=== PATIENT | female | born 1935 | race Two or more races ===

== ENCOUNTER → 2021-04-08 | Outpatient (CLI) | payer MEDICARE ==
[~2021-04-08] VITALS: Ht 167.6 cm; Wt 56.2 kg
[~2021-04-08] MED LIST: DOBUTamine 1000MCG/ML 250 ML IV ONE
== END | disposition home or self-care (01) ==
LOC: Rad HDHVI 09:44
PROVIDERS: ATTEND Internal Medicine Cardiovascular Disease
DX: I11.0 Hypertensive heart disease with heart failure (principal); I50.43 Acute on chronic combined systolic (congestive) and diastolic (congestive) heart failure; I48.91 Unspecified atrial fibrillation; J44.9 Chronic obstructive pulmonary disease, unspecified
CPT/HCPCS: 78452; 93017; 96374; A9500; J1250

== ENCOUNTER → 2021-05-27 | Outpatient (CLI) | payer MEDICARE ==
[~2021-05-27] MED LIST changes: +AMLO-489 PO; +ASPI-543 PO; -DOBUTamine 1000MCG/ML 250 ML IV ONE; +FURO20TA3 PO; +METO1TAB9 PO; +PANT1INJ3 IV; +POTA10TA32 PO
[2021-05-27 08:21] VITALS: BP 154/70
[2021-05-27 08:41] VITALS: BP 147/74
[2021-05-27 09:09] LABS: Basophils # (auto) 0 10 ^3/uL (0-0.2); Basophils % (auto) 0.9 % (0.0-2.0); Eosinophils # (auto) 0.2 10 ^3/uL (0-0.8); Hematocrit 33.9 % (36.0-46.0); Hemoglobin 11.2 g/dL (12.2-16.2); Lymphocytes % (auto) 21.4 % (10.0-50.0); Mean Corpuscular Hemoglobin 28.1 pg (28.0-32.0); Mean Corpuscular Volume 85.2 fL (80.0-100.0); Monocytes # (auto) 0.8 10 ^3/uL (0-1.3); Monocytes % (auto) 16.7 % (0.0-12.0); Neutrophils # (auto) 2.6 10 ^3/uL (1.6-8.6); Nucleated Red Blood Cells % 0.1 %; Red Blood Cells 3.98 10^6/uL (4.0-5.20); Red Cell Distribution Width 13.1 % (11.8-14.3); White Blood Cell 4.6 10^3/uL (4.4-10.8)
[2021-05-27 09:15] LABS: BUN/Creatinine Ratio 14.7; Calcium 9.3 mg/dL (8.5-10.1); Potassium 3.6 mmol/L (3.5-5.1)
[2021-05-27 10:13] LABS: INR 1.07 (0.9-1.15); Partial Thromboplastin Time 25.8 sec (23.6-33.0)
== END | disposition home or self-care (01) ==
LOC: LAB 08:02
PROVIDERS: ATTEND Internal Medicine Cardiovascular Disease
DX: Z01.812 Encounter for preprocedural laboratory examination (principal); R94.31 Abnormal electrocardiogram [ECG] [EKG]; I48.91 Unspecified atrial fibrillation; I11.0 Hypertensive heart disease with heart failure; I50.9 Heart failure, unspecified; I49.5 Sick sinus syndrome
CPT/HCPCS: 36415; 80048; 85025; 85610; 85730; 93005; G0463

== ENCOUNTER 2021-05-31 10:49 | Inpatient (IN) | payer MEDICARE ==
[~2021-05-31] VITALS: Ht 167.6 cm; Wt 61.7 kg
[2021-05-31] VITALS (10 sets, daily range): BP systolic 113–153; BP diastolic 38–92
[2021-05-31] MEDS ORDERED: HEPARIN IN NS 1000Units/500mL 1,500 ML ONE (12:11)
[2021-05-31] MEDS ORDERED: IODIXANOL 320MG/ML 100ML BTL IV ONE (12:11)
[2021-05-31] MEDS ORDERED: LIDOCAINE 2%HCL (LOCAL ANESTH.) INJ 10ml MDV ONE ×2 (12:11→12:41)
[2021-05-31] MEDS ORDERED: fentaNYL CITRATE 100 MCG/2 ML VL ONE (12:44)
[2021-05-31] MEDS ORDERED: SODIUM CHL 0.9% 50 ML ONE (12:44)
[2021-05-31] MEDS ORDERED: ANGIOMAX 250 MG VIAL IV ONE (12:44)
[2021-05-31] MEDS ORDERED: MIDAZOLAM HCL 2MG/2ML 2ml VIAL (1mg/ml) ONE (12:44)
[2021-05-31] MEDS ORDERED: IOHEXOL 350 MG/ML 100ML IJ ONE (13:49)
[2021-05-31] MEDS ORDERED: ASPirin 325 MG TAB ONE (14:17)
[2021-05-31] MEDS ORDERED: TICAGRELOR 90 MG TAB ONE (14:17)
[2021-05-31] MEDS ORDERED: CLOPIDOGREL BISULFATE 75 MG TAB ONE (14:27)
[2021-05-31] MEDS ORDERED: ASPirin 81 mg TAB ONE (14:28)
[2021-05-31] MEDS ORDERED: NITROGLYCERIN 0.4 MG SL TAB SL PRN (14:45)
[2021-05-31] MEDS: POTASSIUM CHL 10 Meq TABLET PO SCH (14:45)
[2021-05-31] MEDS ORDERED: MORPHINE SULFATE INJECTION 2 MG/ML SYRG IV PRN (14:45)
[2021-05-31] MEDS: traMADol HCL 50 MG TAB PO PRN (17:41)
[2021-06-01] MEDS: traMADol HCL 50 MG TAB PO PRN (01:09)
[2021-06-01] MEDS: SODIUM CHLOR 0.9% PF (SALINE LOCK) 10ML VIAL/SYR IV SCH ×3 (01:14→14:16)
[2021-06-01 05:30] VITALS: BP 106/49
[2021-06-01 09:00] VITALS: BP 111/56
[2021-06-01] MEDS ORDERED: CLOPIDOGREL BISULFATE 75 MG TAB PO SCH (10:00)
[2021-06-01] MEDS ORDERED: PANTOPRAZOLE 40 MG/10 ML VIAL INJ IV SCH (10:00)
[2021-06-01] MEDS ORDERED: ASPirin-EC 81 mg tab PO SCH (10:00)
[2021-06-01] MEDS ORDERED: FUROSEMIDE 20 MG TAB PO SCH (10:00)
[2021-06-01] MEDS ORDERED: amLODIPine BESYLATE 5 MG TAB PO SCH (10:00)
[2021-06-01] MEDS ORDERED: METOPROLOL SUCCINATE XL 50 MG TAB PO SCH (10:00)
[2021-06-01] MEDS: POTASSIUM CHL 10 Meq TABLET PO SCH (10:28)
[2021-06-01 16:32] VITALS: BP 134/65
== END 2021-06-01 17:40 | disposition home or self-care (01) | DRG 247 ==
LOC: CATH 10:49 → TELE 14:32 → TELE-CENTR 16:16
PROVIDERS: ADMIT Internal Medicine Cardiovascular Disease; ATTEND Internal Medicine Cardiovascular Disease
PROC: 027034Z Dilation of Coronary Artery, One Artery with Drug-eluting Intraluminal Device, Percutaneous Approach (ICD-10-PCS; principal; 2021-05-31)
PROC: 4A033BC Measurement of Arterial Pressure, Coronary, Percutaneous Approach (ICD-10-PCS; 2021-05-31)
PROC: 4A023N7 Measurement of Cardiac Sampling and Pressure, Left Heart, Percutaneous Approach (ICD-10-PCS; 2021-05-31)
PROC: B2111ZZ Fluoroscopy of Multiple Coronary Arteries using Low Osmolar Contrast (ICD-10-PCS; 2021-05-31)
PROC: B2151ZZ Fluoroscopy of Left Heart using Low Osmolar Contrast (ICD-10-PCS; 2021-05-31)
DX: I25.10 Atherosclerotic heart disease of native coronary artery without angina pectoris (principal); I50.32 Chronic diastolic (congestive) heart failure; E78.5 Hyperlipidemia, unspecified; I11.0 Hypertensive heart disease with heart failure; Z20.822 Contact with and (suspected) exposure to COVID-19; J43.9 Emphysema, unspecified; Z72.0 Tobacco use
CPT/HCPCS: 92928; 93458; 93571; 93572; 99152; 99153; C1874; C9113; G0378; J2001; J2250; Q9967

== ENCOUNTER 2021-08-09 07:16 | Inpatient (IN) | payer MEDICARE ==
[~2021-08-09] VITALS: Ht 167.6 cm; Wt 60.7 kg
[2021-08-09] MEDS ORDERED: methylPREDNISolone SOD SUCC 125 MG/2 ML VL IV ONE (07:30)
[2021-08-09 08:49] LABS: Hematocrit 30.7 % (36.0-46.0); Hemoglobin 9.4 g/dL (12.2-16.2); Mean Corpuscular Hemoglobin 24.7 pg (28.0-32.0); Mean Corpuscular Hgb Conc. 30.6 g/dL (32.0-36.0); Mean Corpuscular Volume 80.6 fL (80.0-100.0); Red Blood Cells 3.81 10^6/uL (4.0-5.20); Red Cell Distribution Width 15.5 % (11.8-14.3); White Blood Cell 9.1 10^3/uL (4.4-10.8)
[2021-08-09 09:02] LABS: Basophils % (manual) 0 (0.0-2.0); Blast Cells 0; Eosinophils % (manual) 0 (0-7); Myelocytes % 0; Promyelocytes % 0; Reactive Lymphocytes 0
[2021-08-09 09:07] LABS: Albumin 3.1 g/dL (3.4-5.0); Calcium 8.6 mg/dL (8.5-10.1); Potassium 4.3 mmol/L (3.5-5.1)
[2021-08-09 09:19] LABS: BUN/Creatinine Ratio 28.6; Bilirubin, Total 0.7 mg/dL (0.2-1.0); CRP High Sensitivity 10.1 mg/dL (< 0.3); Magnesium 2.6 mg/dL (1.6-2.6); Total Protein 6.9 g/dL (6.4-8.2)
[2021-08-09 09:26] LABS: Band Neutrophils % (manual) 2; Lymphocytes % (manual) 7 (10.0-50.0); Metamyelocytes % 1; Monocytes % (manual) 6 (0-12)
[2021-08-09] MEDS ORDERED: ONDANSETRON HCL 4 MG/2 ML VIAL IV PRN (12:00)
[2021-08-09] MEDS ORDERED: ACETAMINOPHEN 325 MG TAB PO PRN (12:00)
[2021-08-09] MEDS ORDERED: DOCUSATE SOD 100 MG CAP PO PRN (12:00)
[2021-08-09] MEDS ORDERED: FUROSEMIDE 100 MG/10ML VIAL IV ONE (12:15)
[2021-08-09 23:45] VITALS: BP 119/60
[2021-08-10] VITALS (7 sets, daily range): BP systolic 110–147; BP diastolic 52–81
[2021-08-10 06:59] LABS: Basophils # (auto) 0 10 ^3/uL (0-0.2); Eosinophils # (auto) 0 10 ^3/uL (0-0.8); Hemoglobin 9.4 g/dL (12.2-16.2); Mean Corpuscular Volume 80.2 fL (80.0-100.0); Monocytes # (auto) 0.4 10 ^3/uL (0-1.3); Neutrophils # (auto) 4.1 10 ^3/uL (1.6-8.6); Nucleated Red Blood Cells % 0.1 %; White Blood Cell 4.9 10^3/uL (4.4-10.8)
[2021-08-10 07:01] LABS: Basophils % (auto) 0.1 % (0.0-2.0); Hematocrit 29.9 % (36.0-46.0); Lymphocytes # (auto) 0.5 10 ^3/uL (0.4-5.4); Lymphocytes % (auto) 9.6 % (10.0-50.0); Mean Corpuscular Hemoglobin 25.2 pg (28.0-32.0); Mean Corpuscular Hgb Conc. 31.4 g/dL (32.0-36.0); Monocytes % (auto) 7.7 % (0.0-12.0); Neutrophils % (auto) 82.6 % (37.0-80.0); Red Blood Cells 3.73 10^6/uL (4.0-5.20); Red Cell Distribution Width 15.6 % (11.8-14.3)
[2021-08-10 07:14] LABS: Calcium 8.5 mg/dL (8.5-10.1); Potassium 4.3 mmol/L (3.5-5.1)
[2021-08-10 07:17] LABS: Albumin 2.8 g/dL (3.4-5.0); BUN/Creatinine Ratio 39.1
[2021-08-10 07:26] LABS: Bilirubin, Total 0.5 mg/dL (0.2-1.0)
[2021-08-10] MEDS: ASPirin 81 mg TAB PO SCH (09:58)
[2021-08-10] MEDS: METOPROLOL SUCCINATE XL 50 MG TAB PO SCH (09:59)
[2021-08-10] MEDS: ENOXAPARIN SOD 40 MG/0.4 ML SYRINGE SC SCH (10:00)
[2021-08-10] MEDS ORDERED: AZITHROMYCIN 500MG/ 250ML 250 ML IV SCH (10:00)
[2021-08-10] MEDS ORDERED: amLODIPine BESYLATE 5 MG TAB PO SCH (10:00)
[2021-08-10] MEDS ORDERED: levoFLOXacin 750MG 150 ML IV SCH (10:00)
[2021-08-10] MEDS ORDERED: CLOPIDOGREL BISULFATE 75 MG TAB PO ONE (11:15)
[2021-08-10] MEDS ORDERED: POTASSIUM CHL 10 Meq TABLET PO ONE (11:15)
[2021-08-10] MEDS ORDERED: FUROSEMIDE 40 MG/4 ML VIAL IV ONE (11:15)
[2021-08-10] MEDS ORDERED: ALBUTEROL SULF 2.5 MG/0.5ML(0.5%) NEB SOLN NEB ONE (12:15)
[2021-08-10] MEDS ORDERED: ALBUTEROL SULF 2.5 MG/0.5ML(0.5%) NEB SOLN NEB PRN (12:15)
[2021-08-10] MEDS ORDERED: CLOP75TA70 PO (14:49)
[2021-08-10 15:01] LABS: Urine Bacteria NONE SEEN /hpf (None Seen); Urine Blood Negative /uL (Negative); Urine Hyaline Cast FEW /lpf (0 - 2); Urine Specific Gravity 1.015 (1.001-1.035); Urine WBC 2 /hpf (0 - 5)
[2021-08-10] MEDS: IPRATROPIUM BROM 0.5 MG/2.5ML INH SOL NEB SCH (19:19)
[2021-08-10] MEDS: ALBUTEROL SULF 2.5 MG/0.5ML(0.5%) NEB SOLN NEB SCH (19:20)
[2021-08-10] MEDS: ATORVASTATIN 20 MG TAB PO SCH (20:50)
[2021-08-11 05:00] VITALS: BP 142/69
[2021-08-11 06:55] LABS: Basophils # (auto) 0 10 ^3/uL (0-0.2); Basophils % (auto) 0.1 % (0.0-2.0); Eosinophils # (auto) 0.1 10 ^3/uL (0-0.8); Eosinophils % (auto) 0.7 % (0.0-7.0); Hematocrit 30.7 % (36.0-46.0); Hemoglobin 9.9 g/dL (12.2-16.2); Lymphocytes # (auto) 0.8 10 ^3/uL (0.4-5.4); Lymphocytes % (auto) 8.2 % (10.0-50.0); Mean Corpuscular Hemoglobin 25.6 pg (28.0-32.0); Mean Corpuscular Hgb Conc. 32.4 g/dL (32.0-36.0); Mean Corpuscular Volume 79.1 fL (80.0-100.0); Monocytes # (auto) 0.9 10 ^3/uL (0-1.3); Monocytes % (auto) 8.5 % (0.0-12.0); Neutrophils # (auto) 8.4 10 ^3/uL (1.6-8.6); Neutrophils % (auto) 82.5 % (37.0-80.0); Nucleated Red Blood Cells % 0.1 %; Red Blood Cells 3.88 10^6/uL (4.0-5.20); Red Cell Distribution Width 15.5 % (11.8-14.3); White Blood Cell 10.2 10^3/uL (4.4-10.8)
[2021-08-11 07:08] LABS: Calcium 8.4 mg/dL (8.5-10.1); Potassium 3.8 mmol/L (3.5-5.1)
[2021-08-11 07:10] LABS: BUN/Creatinine Ratio 32.9
[2021-08-11] MEDS: ALBUTEROL SULF 2.5 MG/0.5ML(0.5%) NEB SOLN NEB SCH ×3 (07:28→18:56)
[2021-08-11] MEDS: IPRATROPIUM BROM 0.5 MG/2.5ML INH SOL NEB SCH ×3 (07:28→18:56)
[2021-08-11 09:00] VITALS: BP 137/86
[2021-08-11] MEDS ORDERED: cefTRIAXone 1GM/50ML D5W 50 ML IV SCH (09:00)
[2021-08-11] MEDS ORDERED: AZITHROMYCIN 500MG/ 250ML 250 ML IV SCH (10:00)
[2021-08-11] MEDS ORDERED: FUROSEMIDE 40 MG/4 ML VIAL IV SCH (10:00)
[2021-08-11] MEDS: ASPirin 81 mg TAB PO SCH (10:33)
[2021-08-11] MEDS: CLOPIDOGREL BISULFATE 75 MG TAB PO SCH (10:34)
[2021-08-11] MEDS: POTASSIUM CHL 10 Meq TABLET PO SCH (10:34)
[2021-08-11] MEDS: METOPROLOL SUCCINATE XL 50 MG TAB PO SCH (10:37)
[2021-08-11] MEDS: ENOXAPARIN SOD 40 MG/0.4 ML SYRINGE SC SCH (10:37)
[2021-08-11] MEDS ORDERED: MUPIROCIN 2% OINT 15gm or 22gm TOP ONE (10:45)
[2021-08-11] MEDS ORDERED: CHOLECALCIFEROL (VITD3) 2,000 UNIT CAP/TAB PO ONE (10:45)
[2021-08-11] MEDS ORDERED: cefTRIAXone 1GM/50ML D5W 50 ML IV ONE (11:00)
[2021-08-11 13:00] VITALS: BP_SYST 121; BP_SYST 132; BP_DIAS 62; BP_DIAS 87
[2021-08-11 16:46] VITALS: BP 112/57
[2021-08-11 22:00] VITALS: BP 123/57
[2021-08-11] MEDS: MUPIROCIN 2% OINT 15gm or 22gm EACHNOSTRI SCH (22:35)
[2021-08-11] MEDS: ATORVASTATIN 20 MG TAB PO SCH (22:35)
[2021-08-12 05:00] VITALS: BP 123/61
[2021-08-12] MEDS: IPRATROPIUM BROM 0.5 MG/2.5ML INH SOL NEB SCH ×3 (05:47→17:56)
[2021-08-12] MEDS: ALBUTEROL SULF 2.5 MG/0.5ML(0.5%) NEB SOLN NEB SCH ×3 (05:47→17:57)
[2021-08-12 07:08] LABS: BUN/Creatinine Ratio 27.8; Calcium 8.3 mg/dL (8.5-10.1); Potassium 3.7 mmol/L (3.5-5.1)
[2021-08-12] MEDS ORDERED: cefTRIAXone 1GM/50ML D5W 50 ML IV SCH (09:00)
[2021-08-12 09:30] VITALS: BP 109/60
[2021-08-12] MEDS: POTASSIUM CHL 10 Meq TABLET PO SCH (10:00)
[2021-08-12] MEDS: MUPIROCIN 2% OINT 15gm or 22gm EACHNOSTRI SCH ×2 (10:00→21:46)
[2021-08-12] MEDS: METOPROLOL SUCCINATE XL 50 MG TAB PO SCH (11:00)
[2021-08-12] MEDS: CHOLECALCIFEROL (VITD3) 2,000 UNIT CAP/TAB PO SCH (11:00)
[2021-08-12] MEDS: ENOXAPARIN SOD 40 MG/0.4 ML SYRINGE SC SCH (11:01)
[2021-08-12] MEDS: cefTRIAXone 1GM/50ML D5W 50 ML IV SCH (11:01)
[2021-08-12] MEDS: ASPirin 81 mg TAB PO SCH (11:01)
[2021-08-12] MEDS: CLOPIDOGREL BISULFATE 75 MG TAB PO SCH (11:08)
[2021-08-12 13:00] VITALS: BP 115/58
[2021-08-12 17:26] VITALS: BP 95/54
[2021-08-12] MEDS: ATORVASTATIN 20 MG TAB PO SCH (21:46)
[2021-08-12 22:00] VITALS: BP 110/50
[2021-08-13] VITALS (7 sets, daily range): BP systolic 104–118; BP diastolic 40–65
[2021-08-13] MEDS: ALBUTEROL SULF 2.5 MG/0.5ML(0.5%) NEB SOLN NEB SCH ×3 (07:23→18:24)
[2021-08-13] MEDS: IPRATROPIUM BROM 0.5 MG/2.5ML INH SOL NEB SCH ×3 (07:23→18:24)
[2021-08-13] MEDS: cefTRIAXone 1GM/50ML D5W 50 ML IV SCH (09:23)
[2021-08-13] MEDS: ASPirin 81 mg TAB PO SCH (09:25)
[2021-08-13] MEDS: ENOXAPARIN SOD 40 MG/0.4 ML SYRINGE SC SCH (09:25)
[2021-08-13] MEDS: AZITHROMYCIN 250 MG TAB PO SCH (09:25)
[2021-08-13] MEDS: FUROSEMIDE 40 MG TAB PO SCH (09:27)
[2021-08-13] MEDS: CLOPIDOGREL BISULFATE 75 MG TAB PO SCH (09:27)
[2021-08-13] MEDS: CHOLECALCIFEROL (VITD3) 2,000 UNIT CAP/TAB PO SCH (09:27)
[2021-08-13] MEDS: METOPROLOL SUCCINATE XL 50 MG TAB PO SCH (10:00)
[2021-08-13 11:22] LABS: Eosinophils # (auto) 0.3 10 ^3/uL (0-0.8); Lymphocytes # (auto) 0.8 10 ^3/uL (0.4-5.4); Monocytes % (auto) 11.6 % (0.0-12.0); Neutrophils # (auto) 6.3 10 ^3/uL (1.6-8.6); White Blood Cell 8.3 10^3/uL (4.4-10.8)
[2021-08-13 11:23] LABS: Basophils # (auto) 0 10 ^3/uL (0-0.2); Basophils % (auto) 0.3 % (0.0-2.0); Eosinophils % (auto) 3.7 % (0.0-7.0); Hematocrit 32.9 % (36.0-46.0); Hemoglobin 10.3 g/dL (12.2-16.2); Lymphocytes % (auto) 9.3 % (10.0-50.0); Mean Corpuscular Hemoglobin 24.6 pg (28.0-32.0); Mean Corpuscular Hgb Conc. 31.4 g/dL (32.0-36.0); Mean Corpuscular Volume 78.4 fL (80.0-100.0); Neutrophils % (auto) 75.1 % (37.0-80.0); Red Cell Distribution Width 16.3 % (11.8-14.3)
[2021-08-13 11:30] LABS: BUN/Creatinine Ratio 26.3; Calcium 8.3 mg/dL (8.5-10.1); Potassium 3.6 mmol/L (3.5-5.1)
[2021-08-13] MEDS: POTASSIUM CHL 10 Meq TABLET PO SCH (12:41)
[2021-08-13] MEDS: MUPIROCIN 2% OINT 15gm or 22gm EACHNOSTRI SCH ×2 (16:42→21:19)
[2021-08-13] MEDS: ATORVASTATIN 20 MG TAB PO SCH (21:19)
[2021-08-14 04:51] VITALS: BP 132/51
[2021-08-14] MEDS: IPRATROPIUM BROM 0.5 MG/2.5ML INH SOL NEB SCH ×3 (06:43→18:52)
[2021-08-14] MEDS: ALBUTEROL SULF 2.5 MG/0.5ML(0.5%) NEB SOLN NEB SCH ×3 (06:43→18:52)
[2021-08-14 08:00] VITALS: BP 140/55
[2021-08-14 08:30] VITALS: BP 140/55
[2021-08-14] MEDS: cefTRIAXone 1GM/50ML D5W 50 ML IV SCH ×4 (09:00→19:20)
[2021-08-14] MEDS: CLOPIDOGREL BISULFATE 75 MG TAB PO SCH (10:00)
[2021-08-14] MEDS: CHOLECALCIFEROL (VITD3) 2,000 UNIT CAP/TAB PO SCH (10:00)
[2021-08-14] MEDS: FUROSEMIDE 40 MG TAB PO SCH (10:00)
[2021-08-14] MEDS: METOPROLOL SUCCINATE XL 50 MG TAB PO SCH (10:00)
[2021-08-14] MEDS: ASPirin 81 mg TAB PO SCH (10:00)
[2021-08-14] MEDS: POTASSIUM CHL 10 Meq TABLET PO SCH (10:00)
[2021-08-14 13:00] VITALS: BP 133/54
[2021-08-14 17:00] VITALS: BP 101/43
[2021-08-14] MEDS: AZITHROMYCIN 250 MG TAB PO SCH (19:17)
[2021-08-14] MEDS: ENOXAPARIN SOD 40 MG/0.4 ML SYRINGE SC SCH (19:18)
[2021-08-14] MEDS: MUPIROCIN 2% OINT 15gm or 22gm EACHNOSTRI SCH ×2 (19:18→22:00)
[2021-08-14 22:00] VITALS: BP 117/50
[2021-08-14] MEDS: ATORVASTATIN 20 MG TAB PO SCH (22:35)
[2021-08-15 05:00] VITALS: BP 124/48
[2021-08-15] MEDS: ALBUTEROL SULF 2.5 MG/0.5ML(0.5%) NEB SOLN NEB SCH ×3 (06:28→18:49)
[2021-08-15] MEDS: IPRATROPIUM BROM 0.5 MG/2.5ML INH SOL NEB SCH ×3 (06:28→18:49)
[2021-08-15 09:00] VITALS: BP 127/56
[2021-08-15] MEDS: MUPIROCIN 2% OINT 15gm or 22gm EACHNOSTRI SCH ×2 (10:31→22:15)
[2021-08-15] MEDS: ENOXAPARIN SOD 40 MG/0.4 ML SYRINGE SC SCH (10:31)
[2021-08-15] MEDS: AZITHROMYCIN 250 MG TAB PO SCH (10:32)
[2021-08-15] MEDS: METOPROLOL SUCCINATE XL 50 MG TAB PO SCH (10:33)
[2021-08-15] MEDS: ASPirin 81 mg TAB PO SCH (10:34)
[2021-08-15] MEDS: POTASSIUM CHL 10 Meq TABLET PO SCH (10:34)
[2021-08-15] MEDS: CLOPIDOGREL BISULFATE 75 MG TAB PO SCH (10:34)
[2021-08-15] MEDS: CHOLECALCIFEROL (VITD3) 2,000 UNIT CAP/TAB PO SCH (10:34)
[2021-08-15] MEDS: FUROSEMIDE 40 MG TAB PO SCH (10:35)
[2021-08-15] MEDS ORDERED: POTASSIUM CHL 20 Meq TABLET PO ONE (11:00)
[2021-08-15] MEDS ORDERED: FUROSEMIDE 20 MG/2 ML VIAL IV ONE (11:00)
[2021-08-15 13:00] VITALS: BP 133/108
[2021-08-15 17:00] VITALS: BP 114/53
[2021-08-15 22:00] VITALS: BP 121/58
[2021-08-15] MEDS: ATORVASTATIN 20 MG TAB PO SCH (22:15)
[2021-08-16 05:00] VITALS: BP 121/50
[2021-08-16 06:21] LABS: BUN/Creatinine Ratio 19.8; Calcium 8.5 mg/dL (8.5-10.1); Potassium 5.1 mmol/L (3.5-5.1)
[2021-08-16] MEDS: ALBUTEROL SULF 2.5 MG/0.5ML(0.5%) NEB SOLN NEB SCH ×2 (06:33→13:17)
[2021-08-16] MEDS: IPRATROPIUM BROM 0.5 MG/2.5ML INH SOL NEB SCH ×2 (06:33→13:17)
[2021-08-16 09:00] VITALS: BP 118/76
[2021-08-16] MEDS: cefTRIAXone 1GM/50ML D5W 50 ML IV SCH (09:48)
[2021-08-16] MEDS: POTASSIUM CHL 10 Meq TABLET PO SCH (09:49)
[2021-08-16] MEDS: MUPIROCIN 2% OINT 15gm or 22gm EACHNOSTRI SCH (09:49)
[2021-08-16] MEDS: CLOPIDOGREL BISULFATE 75 MG TAB PO SCH (09:49)
[2021-08-16] MEDS: ASPirin 81 mg TAB PO SCH (09:49)
[2021-08-16] MEDS: FUROSEMIDE 40 MG TAB PO SCH (09:50)
[2021-08-16] MEDS: ENOXAPARIN SOD 40 MG/0.4 ML SYRINGE SC SCH (09:50)
[2021-08-16] MEDS: METOPROLOL SUCCINATE XL 50 MG TAB PO SCH (09:50)
[2021-08-16] MEDS: AZITHROMYCIN 250 MG TAB PO SCH (09:50)
[2021-08-16] MEDS: CHOLECALCIFEROL (VITD3) 2,000 UNIT CAP/TAB PO SCH (09:50)
[2021-08-16] MEDS ORDERED: FURO40TA4 PO (10:53)
[2021-08-16] MEDS ORDERED: AZIT250T9 PO (10:53)
[2021-08-16] MEDS ORDERED: FUROSEMIDE 20 MG/2 ML VIAL IV ONE (11:00)
[2021-08-16 13:00] VITALS: BP 130/55
[2021-08-16 14:57] VITALS: BP 130/55
[2021-08-16 15:26] VITALS: BP 130/55
[2021-08-16 16:41] VITALS: BP 130/56
== END 2021-08-16 16:40 | disposition home health service (06) | DRG 177 ==
LOC: ER 07:16 → TELE 12:01 → TELE-CENTR 23:45
PROVIDERS: ADMIT Internal Medicine; ATTEND Internal Medicine
DX: U07.1 COVID-19 (principal); I50.43 Acute on chronic combined systolic (congestive) and diastolic (congestive) heart failure; J12.82 Pneumonia due to coronavirus disease 2019; J96.21 Acute and chronic respiratory failure with hypoxia; J44.1 Chronic obstructive pulmonary disease with (acute) exacerbation; I48.92 Unspecified atrial flutter; J44.0 Chronic obstructive pulmonary disease with (acute) lower respiratory infection; R00.1 Bradycardia, unspecified; D64.9 Anemia, unspecified; E78.5 Hyperlipidemia, unspecified; I11.0 Hypertensive heart disease with heart failure; I25.10 Atherosclerotic heart disease of native coronary artery without angina pectoris; Z96.641 Presence of right artificial hip joint; Z96.651 Presence of right artificial knee joint; Z20.822 Contact with and (suspected) exposure to COVID-19; K21.9 Gastro-esophageal reflux disease without esophagitis; A49.02 Methicillin resistant Staphylococcus aureus infection, unspecified site; I48.0 Paroxysmal atrial fibrillation; Z79.899 Other long term (current) drug therapy; Z85.820 Personal history of malignant melanoma of skin; Z86.006 Personal history of melanoma in-situ; Z87.891 Personal history of nicotine dependence; Z90.710 Acquired absence of both cervix and uterus; Z95.5 Presence of coronary angioplasty implant and graft
CPT/HCPCS: 36415; 71045; 80048; 80053; 81001; 82728; 83605; 83735; 83880; 84484; 85007; 85025; 85027; 85379; 86141; 87040; 87081; 93005; 94640; 96374; 96375; 97110; 97116; 97163; 97530; G0378; J0696; J1956

== ENCOUNTER → 2021-10-03 | Outpatient (CLI) | payer MEDICARE ==
[~2021-10-03] MED LIST changes: -AMLO-489 PO; +AZIT250T9 PO; +CLOP75TA70 PO; -FURO20TA3 PO; +FURO40TA4 PO
== END | disposition home or self-care (01) ==
LOC: Rad HDHVI 10:34
PROVIDERS: ATTEND Internal Medicine Cardiovascular Disease
DX: R06.02 Shortness of breath (principal)
CPT/HCPCS: 71046

== ENCOUNTER → 2021-10-14 | Outpatient (CLI) | payer MEDICARE | END | disposition home or self-care (01) | LOC: Rad HDHVI 12:52 | PROVIDERS: ATTEND Internal Medicine Cardiovascular Disease | DX: R00.2 Palpitations (principal); R06.02 Shortness of breath | CPT/HCPCS: 93306 ==

== ENCOUNTER → 2021-10-24 | Outpatient (CLI) | payer MEDICARE ==
[~2021-10-24] VITALS: Ht 165.1 cm; Wt 59.0 kg
[~2021-10-24] MED LIST changes: +DOBUTamine 1000MCG/ML 100 ML IV ONE; +DOBUTamine 1000MCG/ML 250 ML IV ONE
== END | disposition home or self-care (01) ==
LOC: Rad HDHVI 13:47
PROVIDERS: ATTEND Internal Medicine Cardiovascular Disease
DX: I25.10 Atherosclerotic heart disease of native coronary artery without angina pectoris (principal); R06.02 Shortness of breath; R07.89 Other chest pain; E78.00 Pure hypercholesterolemia, unspecified; I10 Essential (primary) hypertension; I48.0 Paroxysmal atrial fibrillation; Z82.49 Family history of ischemic heart disease and other diseases of the circulatory system; Z79.82 Long term (current) use of aspirin; Z79.899 Other long term (current) drug therapy
CPT/HCPCS: 78452; 93005; 96374; 96375; A9500; J1250

== ENCOUNTER → 2021-11-07 | Outpatient (CLI) | payer MEDICARE ==
[~2021-11-07] MED LIST changes: -DOBUTamine 1000MCG/ML 100 ML IV ONE; -DOBUTamine 1000MCG/ML 250 ML IV ONE
== END | disposition home or self-care (01) ==
LOC: LAB 10:50
PROVIDERS: ATTEND Internal Medicine Cardiovascular Disease
DX: R94.4 Abnormal results of kidney function studies (principal)
CPT/HCPCS: 36415; 82565; 84520

== ENCOUNTER → 2021-11-08 | Outpatient (CLI) | payer MEDICARE ==
[~2021-11-08] MED LIST changes: +IOHEXOL 350 MG/ML 100ML IJ ONE
[2021-11-08 09:11] VITALS: BP 156/57
[2021-11-08 09:37] VITALS: BP 146/52
== END | disposition home or self-care (01) ==
LOC: Rad HDHVI 09:01
PROVIDERS: ATTEND Internal Medicine Cardiovascular Disease
DX: J98.11 Atelectasis (principal); J90 Pleural effusion, not elsewhere classified; E04.2 Nontoxic multinodular goiter; K80.20 Calculus of gallbladder without cholecystitis without obstruction; R91.1 Solitary pulmonary nodule; N28.1 Cyst of kidney, acquired; M47.815 Spondylosis without myelopathy or radiculopathy, thoracolumbar region; R07.89 Other chest pain; R06.02 Shortness of breath
CPT/HCPCS: 71275; G0463; Q9967